=== PATIENT | female | born 1985 | race African-American/Black ===

== ENCOUNTER 2019-05-08 08:53 | Emergency (ER) | payer SELFPAY ==
--- OUTSIDE RECORDS SUMMARY | 2019-05-08 08:55 | XMS REPORT | Continuity of Care Document ---
:1985 Author Organization [facility] Address [address] [place] [address] Phone Unavailable Care Team Providers Name Role Phone PHYSICIAN, NO Primary Care Physician Unavailable Insurance Providers Guarantor Singh Cazares Address [address] [place] [address] Email [email or web address] Payer Self Pay Insurance Subscriber's Name Singh Czaares Relationship Self / Same As Patient Group Number NA Group Name NA Advance Directives Directive Response Recorded Date/Time Advance Directives No 08/24/15 3:54pm Advance Directive on File No 07/24/18 10:17pm Directive to Physicians/Living Will No 08/24/15 3:54pm Health Care Proxy No 08/24/15 3:54pm Name of Surrogate/Decision Maker NA 07/24/18 9:59pm Organ Donor No 08/24/15 3:54pm Medical Power of Associate Professor Of Church Music No 08/24/15 3:54pm Patient/Family Given Education Material R/T Y - KR....07/24/18 07/24/18 10: 17pm Directives? Chief Complaint and Reason for Visit Chief Complaint Female Urogenital Problems Reason for Visit Urinary tract infectious disease Problems Medical Problem Onset Date Status Acute sinus infection Unknown Acute Ankle pain, left Unknown Acute Atypical chest pain Unknown Acute Bronchitis Unknown Acute Costochondritis Unknown Acute Headache Unknown Acute Influenza-like illness Unknown Acute Injury of ankle, left Unknown Acute Injury of left ankle Unknown Acute Left ankle injury Unknown Acute Left ankle pain Unknown Acute Left ankle sprain Unknown Acute Monilial rash Unknown Acute Pain in left ankle Unknown Acute Sinusitis Unknown Acute Sprain of ankle Unknown Acute Sprain of left ankle Unknown Acute Strain of left ankle Unknown Acute Strain of tendon of foot and ankle Unknown Acute Past Problems Medical Problem Onset Date Status Muscle spasm of back Unknown Acute Muscle strain Unknown Acute Pharyngitis Unknown Acute Urinary tract infectious disease Unknown Acute Medications Current Home Medications Medication Dose Units Route Directions Days Qty Instructions Start Date Cefuroxime Axetil 1 Tab ORAL Twice A Day 5 Days 10 Tablet 07/24/18 500 Mg Tab for Infection Ondansetron Hcl 4 Mg ORAL Every 8 Hours 30 Days 15 Tablet 07/24/18 (Zofran *) 4 Mg As Needed as Tab needed for Nausea/Vomiti ng Phenazopyridine 1 Tab ORAL Three Times A 6 Tablet 07/24/18 Hcl (Pyridium 200 Day for Pain Mg*) 200 Mg Tab Tramadol/Apap * 1 Tab ORAL Every 6 Hours 30 Days 15 Tablet 07/24/18 (Ultracet 37.5/325 As Needed for Mg *) 1 Tab Tab Pain Social History Social History Problem Response Recorded Date/Time Onset Date Status Hx Physical Abuse No 07/24/2018 10:17pm Not Applicable Not Applicable Smoking Status Start Date Stop Date Never smoker Hospital Discharge Instructions No hospital discharge instruction information available. Plan of Care Discharge Date 07/25/18 12:04am Instructions/Education Provided Urinary Tract Infection, Adult Forms Provided Portal Welcome Letter Prescriptions See Medication Section Referrals NO PHYSICIAN Additional Instructions/Education Recommend that you take the Ceftin 500 mg 2 times daily for next 5 days, also take the Pyridium 200 mg 3 times daily for 2 days, and also may take the Ultram 50 mg as needed for pain along with Zofran 4 mg as needed for nausea. Follow up with your primary doctor in 2 days for re check of your condition, or otherwise return to the Ed if your condition worsens. Functional Status No functional status information available. Allergies, Adverse Reactions, Alerts Allergen Type Severity Reaction Status Last Updated No Known Allergies Allergy Severe Active 03/24/05 Immunizations No immunization information available. Vital Signs Acute Vital Signs Vital Response Date/Time Blood Pressure 120/75 mm Hg 07/25/2018 12:04am Pulse Pulse Rate (adult) 90 beats per minute (60 - 100) 07/25/2018 12:04am Respiratory Rate 18 breaths per minute (10 - 24) 07/25/2018 12:04am Temperature Source Oral 07/25/2018 12:04am Height 5 ft 3 in 07/24/2018 10:17pm Weight 215 lb 07/24/2018 10:17pm Body Mass Index 38.1 kg/m^2 07/24/2018 10:17pm Results Laboratory Results Test Name Result Units Flags Reference Collection Result Comments Date/Time Date/Time Urine Color YELLOW 07/24/2018 07/24/2018 10:22pm 10:59pm Urine CLOUDY A CLEAR 07/24/2018 07/24/2018 Appearance 10:22pm 10:59pm Urine Glucose NEGATIVE NEGATIVE 07/24/2018 07/24/2018 10:22pm 10:59pm Urine Bilirubin NEGATIVE NEGATIVE 07/24/2018 07/24/2018 10:22pm 10:59pm Urine Ketones NEGATIVE NEGATIVE 07/24/2018 07/24/2018 10:22pm 10:59pm Urine Specific >=1.030 1.003-1.030 07/24/2018 07/24/2018 [place] 10:22pm 10:59pm Urine Blood LARGE H NEGATIVE 07/24/2018 07/24/2018 10:22pm 10:59pm Urine pH 6.000 5-9 07/24/2018 07/24/2018 10:22pm 10:59pm Urine Protein 2+ (100 H NEGATIVE 07/24/2018 07/24/2018 mg/dL) 10:22pm 10:59pm Urine 0.2 E.U./dL 0.2-1.0 07/24/2018 07/24/2018 Urobilinogen 10:22pm 10:59pm Urine Nitrate POSITIVE NEGATIVE 07/24/2018 07/24/2018 10:22pm 10:59pm Urine Leukocyte MODERATE H NEGATIVE 07/24/2018 07/24/2018 Esterase 10:22pm 10:59pm Urine RBC TOO /hpf H 0-5 07/24/2018 07/24/2018 NUMEROUS TO 10:22pm 10:59pm CNT Urine WBC 15-19 /hpf H 0-5 07/24/2018 07/24/2018 10:22pm 10:59pm Urine 0-5 /hpf 0-5 07/24/2018 07/24/2018 Epithelial 10:22pm 10:59pm Cells Urine Bacteria MODERATE /hpf H None Detect 07/24/2018 07/24/2018 (2+) 10:22pm 10:59pm Urine Culture YES 07/24/2018 07/24/2018 Reflexed 10:22pm 10:59pm Procedures No procedure information available. Encounters Encounter Location Arrival/Admit Date Discharge/Depart Date Attending Provider Departed [place] 07/24/18 9:54pm 07/25/18 12:04am [facility] CALL [facility] Recent Diagnosis
--- OUTSIDE RECORDS SUMMARY | 2019-05-08 08:55 | XMS REPORT ---
:1985 Author Organization [facility] Address [address] [place] [address] Care Team Providers Name Role Phone DR KEIRA MARAVILLA Unavailable Unavailable Problems This patient has no known problems. Allergies, Adverse Reactions, Alerts This patient has no known allergies or adverse reactions. Medications This patient has no known medications. Encounters Start End Encounter Admission Attending Care Care Encounter Date/Time Date/Time Type Type Clinicians Facility Department ID 2019-04-22 2019-04-22 Outpatient E KERIA MARAVILLA [facility] [id number] 07:07:00 09:45:00 Results Test Description Test Time Test Comments Text Results Atomic Results Result Comments CT ABDOMEN AND PELVIS 2019-04-22 09:06:[address] OF THE ABDOMEN WITH CONTRAST *OW* AND PELVIS WITH CONTRASTCLINICAL HISTORY:[id number]: Right lower quadrant painCOMPARISON: NoneTECHNIQUE:5 mm contiguous axial images were obtained from the diaphragmatic dome throughthe symphysis pubis after the administration of 95 cc of Omnipaque 300intravenously. Delayed images through the kidneys and collecting systems,sagittal and coronal reformations were also obtained and reviewed. Patient'screatinine and GFR are normal. An up-to-date CT recommended radiation dosereduction technique was utilized with total DLP of 2502 mGy-cm.FINDINGS:Lung bases: ClearHepatobiliary fatty liver with more focal fatty infiltration around theligamentum teres. No liver or splenic mass. No calcified gallstones or biliarydilatation. The pancreas appears unremarkableAdrenals: No obvious massGU: Function symmetrically with no hydronephrosis. Bladder and appears grosslyintact but not well distendedGI tract: No evidence for bowel obstruction or perforation. The appendix isseen and appears normal. The abdominal wall is intact.Retroperitoneum and pelvis: Enlarged heterogeneous uterus with suspicious 9 cmfundal fibroid. Possible 19 mm left ovarian and 13 mm right ovarian cyst. Noadnexal mass, free fluid or fluid collection.Osseous structures: UnremarkableImpression:1. No acute findings in the abdomen or pelvis.2. Enlarged fibroid uterus and small ovarian cysts.3. Fatty liver. GENERAL CHEMISTRY 13 *OW* renzo 2019-04-22 07:54:00 Test Item Value Reference Range Comments GLUCOSE (test code=GGUL) 90 mg/dL 73-118 BUN (test code=GBUN) 7 mg/dL 7-22 CREATININE (test code=GCRE) 0.9 mg/dL 0.6-1.2 URIC ACID (test code=GUA) 4.0 mg/dL 2.2-6.6 CALCIUM (test code=GCL+) 8.8 mg/dL 8.0-10.3 ALBUMIN (test code=GALB) 3.5 g/dL 3.5-5.5 PROTEIN (test code=GTP) 8.0 g/dL 6.4-8.1 ALT (test code=GALT) 11 U/L 10-47 AST (test code=LESLIE) 20 U/L 11-38 ALK PHOS (test code=GALP) 63 U/L 42-141 BILI TOTAL (test code=GTBIL) 0.7 mg/dL 0.2-1.6 GGT (test code=GGGT) 10 U/L 5-65 AMYLASE (test code=GAMY) 45 U/L 14-97 URINE OW2019-04-22 07:54:00 Test Item Value Reference Range Comments PREG UR (test code=PGU) Negative NEGATIVE CBC (INCLUDES AUTOMATED DIFFERENTIAL) *2019-04-22 07:35:00 Test Item Value Reference Range Comments WBC (test code=WBC) 7.4 10\S\3/uL 4.5-11.0 RBC (test code=RBC) 3.39 10\S\6/uL 4.30-5.70 HGB (test code=HBG) 9.8 g/dL 12.0-15.5 HCT (test code=HCT) 30.6 % 35.0-44.0 MCV (test code=MCV) 90.2 fL 81.0-99.0 MCH (test code=MCH) 28.9 pg 27.0-31.0 MCHC (test code=MCHC) 32.0 g/dL 32.0-36.0 RDW (test code=RDW) 13.5 % 11.5-14.5 PLT (test code=PLT) 352 10\S\3/uL 130-400 MPV (test code=OMPV) 7.7 fL 6.2-10.2 NEUTROP # (test code=NE#) 4.9 10\S\3/uL 1.6-8.0 LYMPH # (test code=LY#) 2.0 10\S\3/uL 1.1-3.5 MID # (test code=GMID#) 0.5 10\S\3/uL 0.0-1.1 GRA % (test code=GRA%) 66.1 % 35.0-73.0 LYMPH % (test code=GLY%) 26.7 % 20.0-55.0 MID % (test code=GMID%) 7.2 % 0.0-10.0 URINALYSIS W/O MICROSCOPICOW2019-04-22 07:33:00 Test Item Value Reference Range Comments COLOR (test code=COLU) Yellow YELLOW CLARITY (test code=CLA) Clear CLEAR GLUCOSE UR (test code=UA Negative NEGATIVE GLUCOSE) BILI UR (test code=BILE) Negative NEGATIVE KETONES UR (test code=ANTOLIN) Negative NEGATIVE SP GRAVITY (test code=SPGR) 1.025 1.005-1.030 PH UR (test code=PH) 6.0 4.5-8.0 PROTEIN UR (test code=PU) Negative NEGATIVE NITRITE UR (test Negative NEGATIVE code=NITRITE) UROBIL UR (test code=GUROQ) 0.2 E.U./dL UROBIL UR (test code=GUROQC) UROBILINOGEN REFERENCE RANGE 0.2 - 1.0 EU/dL BLOOD UR (test code=UA 2+ NEGATIVE BLOOD) LEUK ES UR (test code=LEUK) Trace NEGATIVE
--- OUTSIDE RECORDS SUMMARY | 2019-05-08 08:56 | XMS REPORT | Continuity of Care Document ---
:1985 Author Organization [facility] Address [address] [place] [address] Allergies, Adverse Reactions, Alerts Allergen Type Severity Reaction Last Updated Verified Status No Known Allergies Allergy Severe March 24, 2005 Yes Active Medications Medication Status Dose Units Route Sig Qty Days Start End Instructions Date Date Cefuroxime Discontinued 1 ORAL Twice A 10 July Axetil Day for , , Infection 2018 2018 11:30p m Cephalexin * Discontinued 500 ORAL Twice A Day for April 05, 2019 Infection 12:01am (One-Time) Ondansetron Hcl Discontinued 4 ORAL Every 8 Hours As 15 July 24August Needed as needed 2019 04, for Nausea/Vomiting 11:30pm 2018 Phenazopyridine Hcl Discontinued 1 ORAL Three Times A 6 July 24, 2018 Day for Pain 11:30pm (One-Time) Tramadol/Apap * Discontinued 1 ORAL Every 6 Hours July 24August 23, As Needed for 2018 11:30pm 2018 Pain Problems Active Problems Medical Problem Onset Date Status Acute sinus infection Active Ankle pain, left Active Atypical chest pain Active Bronchitis Active Costochondritis Active Headache Active Influenza-like illness Active Injury of ankle, left Active Injury of left ankle Active Left ankle injury Active Left ankle pain Active Left ankle sprain Active Monilial rash Active Pain in left ankle Active Sinusitis Active Sprain of ankle Active Sprain of left ankle Active Strain of left ankle Active Strain of tendon of foot and ankle Active Inactive/Resolved Problems Medical Problem Onset Date Status Muscle spasm of back Resolved Muscle strain Resolved Pharyngitis Resolved UTI (urinary tract infection) Resolved Urinary tract infectious disease Resolved Procedures No procedure information available. Relevant Diagnostic Tests and/or Laboratory Data Laboratory Results Test Date/Time Result Interpretation Reference Result Performing Range Comment Site White Blood Count March 6.6 4.0-11.5 [facility], [address] 2018 10:00pm [facility] [address] Red Blood Count March 3.68 3.80-5.20 [facility], [address] [facility] 2018 10:00pm [place] [address] Hemoglobin March 10.4 10.5-15.7 [facility], [address] [facility] 2018 10:00pm [place] [address] Hematocrit November 33.2 34.0-50.0 [facility], [address] [facility] 2018 10:00pm [place] [address] Mean Corpuscular November 90.2 86-100 [facility], [address] [facility] Volume 2018 10:00pm [place] [address] Mean Corpuscular November 28.3 26.2-33.4 [facility], [address] [facility] Hemoglobin 2018 10:00pm [place] [address] Mean Corpuscular November 31.3 30-34 [facility], [address] [facility] Hemoglobin 2018 Concent 10:00pm [facility] [address] Red Cell March 14.1 12.0-15.5 [facility], [address] [facility] Distribution 2018 Width 10:00pm [place] [address] Platelet Count March 338 165-450 [facility], [address] [facility] 2018 10:00pm [place] [address] Mean Platelet March 9.5 9.4-12.6 [facility], [address] [facility] Volume 2018 10:00pm [place] [address] Neutrophils (%) March 53.7 44.4-80.1 [facility], [address] [facility] (Auto) 2018 10:00pm [place] [address] Immature March 0.2 0.0-0.4 [facility], [address] [facility] Granulocyte % 2018 (Auto) 10:00pm [place] [address] Lymphocytes (%) March 37.5 10.0-50.0 [facility], [address] [facility] (Auto) 2018 10:00pm [place] [address] Monocytes (%) March 5.3 3.6-12.0 [facility], [address] [facility] (Auto) 2018 10:00pm [place] [address] Eosinophils (%) March 2.7 0.0-5.4 [facility], [address] [facility] (Auto) 2018 10:00pm [place] [address] Basophils (%) March 0.6 0.1-1.2 [facility], [address] [facility] (Auto) 2018 10:00pm [place] [address] Neutrophils # November 3.52 1.56-6.13 [facility] [address] [facility] (Auto) 2018 10:00pm [place] [address] Absolute Immature November 0.0 0.0-0.03 [facility], [address] [place] [address] Granulocyte (auto 2018 10:00pm [place] [address] Lymphocytes # November 2.5 1.18-3.74 [facility] [address] [facility] (Auto) 2018 10:00pm [place] [address] Monocytes # November 0.35 0.24-0.86 [facility], [address] [facility] (Auto) 2018 10:00pm [place] [address] Eosinophils # November 0.18 0.04-0.36 [facility], [address] [facility] (Auto) 2018 10:00pm [place] [address] Basophils # March 0.04 0.01-0.08 [facility], [address] [facility] (Auto) 2018 10:00pm [place] [address] Nucleated Red November 0 0-0.2 [facility], [address] [place] [address] Blood Cells % 2018 10:00pm [place] [address] Nucleated Red November 0 0 [facility], [address] [place] [address] Blood Cells # 2018 10:00pm [place] [address] Urine Color March LT. [facility], [address] [place] [address] 2018 YELLOW 9:55pm [facility] [address] Urine Appearance March CLEAR CLEAR [facility], [address] [place] [address] 2018 9:55pm [facility] [address] Urine Glucose November NEGATIVE NEGATIVE [facility], [address] [place] [address] (UA) 2018 9:55pm [place] [address] Urine Bilirubin November NEGATIVE NEGATIVE [facility], [address] [place] [address] 2018 9:55pm [place] [address] Urine Ketones November NEGATIVE NEGATIVE [facility], [address] [place] [address] 2018 9:55pm [place] [address] Urine Specific November <=1.005 1.003-1.03 [facility], [address] [place] [address] [place] 2018 0 9:55pm [place] [address] Urine Blood November SMALL NEGATIVE [facility], [address] [place] [address] 2018 9:55pm [place] [address] Urine pH March 6.000 5-9 [facility], [address] [place] [address] 2018 9:55pm [facility] [address] Urine Protein March NEGATIVE NEGATIVE [facility], [address] [place] [address] 2018 9:55pm [facility] [address] Urine November 0.2 0.2-1.0 [facility], [address] [place] [address] Urobilinogen 2018 9:55pm [facility] [address] Urine Nitrate March NEGATIVE NEGATIVE [facility], [address] [place] [address] 2018 9:55pm [facility] [address] Urine Leukocyte March TRACE NEGATIVE [facility], [address] [place] [address] Esterase 2018 9:55pm [facility] [address] Urine RBC March 0-3 0-5 [facility], [address] [place] [address] 2018 9:55pm [facility] [address] Urine WBC March 0-5 0-5 [facility], [address] [place] [address] 2018 9:55pm [facility] [address] Urine Epithelial March 0-5 0-5 [facility], [address] [place] [address] Cells 2018 9:55pm [facility] [address] Urine Bacteria March None None [facility], [address] [place] [address] 2018 Detected Detect 9:55pm [place] [id number] Urine Culture March YES [facility], [address] [place] [address] Reflexed 2018 9:55pm [facility] [address] Random Glucose March 92 74-106 [facility], [address] [place] [address] 2018 10:00pm [facility] [address] Blood Urea March 9 -20 [facility], [address] [place] [address] Nitrogen 2018 10:00pm [facility] [address] Serum Osmolality March 272 280-300 [facility], [address] [place] [address] 2018 10:00pm [place] [id number] Creatinine March 0.7 0.50-0.90 [facility], [address] [place] [address] 2018 10:00pm [facility] [address] Glomerular March > 60.00 [address] RESULTS [address] Filtration Rate 2018 ARE REPORTED Calc 10:00pm IN [facility] [address] mL/min/1.73m2 .Normal GFR: >60mL/minMode rately decreased GFR: 30-59 mL/minSeverel y decreased GFR: 15-29 mL/minKidney Failure (or Dialysis): <15 mL/minThe calculated eGFR is not valid for patients younger than 18 years or older than 75 years. BUN/Creatinine March 12.9 12-20 [facility], [address] [facility] Ratio 2018 10:00pm [facility] [address] Sodium Level March 137 135-145 [facility], [address] [facility] 2018 10:00pm [facility] [address] Potassium Level March 3.8 3.5-5.2 [facility], [address] [facility] 2018 10:00pm [facility] [address] Chloride Level March 100 98-108 [facility], [address] [facility] 2018 10:00pm [facility] [address] Carbon Dioxide April 04- [facility] [address] [facility] Level 2018 10:00pm [facility] [address] Anion Gap March 18.8 - [facility] [address] [facility] 2018 10:00pm [facility] [address] Calcium Level March 9.2 8.6-10.0 [facility] [address] [facility] 2018 10:00pm [facility] [address] Total Protein March 8.1 6.6-8.7 [facility] [address] [facility] 2018 10:00pm [facility] [address] Albumin November 4.5 3.5-5.2 [facility] [address] [facility] 2018 10:00pm [facility] [address] Globulin November 3.6 [facility] [address] [facility] 2018 10:00pm [facility] [address] Albumin/Globulin November 1.3 >1.0 [facility] [address] [facility] Ratio 2018 10:00pm [facility] [address] Total Bilirubin March 0.4 0.0-1.2 [facility], [address] [facility] 2018 10:00pm [facility] [address] Aspartate Amino March 17 15-32 [facility] [address] [facility] Transf (AST/SGOT) 2018 10:00pm [facility] [address] Alanine March 9 0-33 [facility] [address] [facility] Aminotransferase 2018 (ALT/SGPT) 10:00pm [facility] [address] Lipase March 15 13-60 [facility] [address] [facility] 2018 10:00pm [facility] [address] Total Alkaline March 70 35-105 [facility] [address] [facility] Phosphatase 2018 10:00pm [facility] [address] Urine HCG, March NEGATIVE NEG If a negative [facility], [address] [facility] Qualitative 2018 result is 9:55pm obtained but [facility] [address] is suspected, a new specimen should be collected after 48-72 hours and tested. If waiting 48 hrs is not medically advisable, the test result should be confirmed with at quantitative hCG assay. Health Concerns No known health concerns documented Advance Directives Advance Directive Response Recorded Date/Time Advance Directives No August 24, 2015 3:54pm Advance Directive on File No April 04, 2019 9:22pm Directive to Physicians/Living Will No August 24, 2015 3:54pm Health Care Proxy No August 24, 2015 3:54pm Organ Donor No August 24, 2015 3:54pm Medical Power of Didactic Program In Dietetics Director No August 24, 2015 3:54pm Chief Complaint and Reason for Visit Chief Complaint General Complaint Reason for Visit [id number] Encounters Encounter Location(s) Arrival/Admit Date Discharge/Depart Date Provider(s) Departed [place] April 04, April 05, 2019 [facility] Emergency Room [place] [address] 9:06pm 12:30am IVETTE [facility] Assessments No Assessments Information Available Functional Status No Functional Status information available Goals No Goals Information Available Immunizations No Immunization Information Available Mental Status No Mental Status Information Available Medical Equipment No Medical Equipment Information available Insurance Providers Guarantor Singh Cazares L Address [address] [address] Contact Info. Home Phone: Payer Policy Id Coverage Id Subscriber's Subscriber Id Effective Expiration Name Date Date Self Pay Singh Cazares Insurance L Plan of Treatment TAKE MEDICATION PRESCRIBED. INCREASE FLUID INTAKE--WATER AND NON CAFFINATED DRINKS. FOLLOW UP WITH PRIMARY CARE DOCTOR IN 2-3 DAYS. RETURN TO ER FOR ANY FURTHER EMERGENCIES. Future Tests Future scheduled test information is unavailable Pending Tests Test Name Date ordered Urine Culture April 04, 2019 9:55pm Future Visits Future appointment information is unavailable Referrals to Other Providers Reason for Referral Start Provider Provider Contact Provider Address Referral Date Information PHYSICIAN, NO Future Procedures Future procedure information is unavailable Future Medications Future medication information is unavailable Patient Instructions Urinary Tract Infection, Adult, Fkov-li-Ghtu Social History Smoking Status Status Date of Observation Never smoked tobacco (finding) April 04, 2019 9:22pm Observation Status Observation Response Date of Response Hx Physical Abuse No April 04, 2019 9:22pm Assigned Sex Female Vital Signs Vital Reading Result Collection Date/Time
[2019-05-08] MEDS ORDERED: MEPERIDINE HCL 25 MG/0.5 ML ONE (09:24)
[2019-05-08 09:41] LABS: Absolute Lymphocytes (CBC) 1.7 K/uL (0.7-4.9); Basophils % 0.6 % (0-1.3); Hematocrit 28.1 % (36.0-45.0); Lymphocytes % 23.9 % (15.3-44.8); MPV 7.5 fL (7.6-11.3); RBC Red Blood Cell Count 3.27 M/uL (3.86-4.86)
[2019-05-08 09:55] LABS: ALT/SGPT 14 U/L (12-78); AST/SGOT 11 U/L (15-37); Albumin 3.5 g/dL (3.4-5.0); Alkaline Phosphatase 81 U/L (45-117); BUN Blood Urea Nitrogen 10 mg/dL (7-18); Bicarbonate 25 mmol/L (21-32); Bilirubin Direct 0.1 mg/dL (0-0.2); Bilirubin Total 0.7 mg/dL (0.2-1.0); Glucose Level 86 mg/dL (74-106); Lipase 65 U/L (73-393); Potassium 4.1 mmol/L (3.5-5.1); Protein, Total 8.5 g/dL (6.4-8.2); Sodium Level 136 mmol/L (136-145)
[2019-05-08 10:29] LABS: Urine Blood 3+ (NEG); Urine Glucose NEGATIVE (NEG); Urine Protein NEGATIVE (NEG); Urine pH 5.5 (5.0-7.0)
--- NOTE | 2019-05-08 10:32 | RAD REPORT ---
EXAM DESCRIPTION: CT - Stone Protocol - 05/08/2019 10:13 am CLINICAL HISTORY: Flank pain. left flank and pelvic pain, hematuria COMPARISON: No comparisons TECHNIQUE: Axial images were obtained without oral or IV contrast. Lack of contrast limits solid org an and vascular assessment. The [id number] spans the entirety of the system partially obscuring uppermost abdomen and lung bases. Coronal reformatted images were obtained and reviewed. All CT scans are performed using dose optimization technique as appropriate and may include automated exposure control or mA/KV adjustment according to patient size. FINDINGS: The lower lung adames are clear. Imaged portions of the liver and spleen show no suspicious findings on non-contrast imaging. The panc reas and adrenal glands are normal. No pathologic lymphadenopathy in the abdomen or pelvis. No urinary tract stones or obstructive uropathy. No bowel obstruction, free air, free fluid or abscess. Normal appendix noted. No significant bony abnormality. IMPRESSION: No urinary tract stones or obstructive uropathy.
[2019-05-08 10:34] LABS: Urine Bacteria <20 /HPF (<20); Urine Culture Reflex Order NOT NEEDED; Urine Mucus LIGHT /HPF (NONE SEEN); Urine RBC >50 /HPF (NONE SEEN)
--- NOTE | 2019-05-08 11:01 | ER ---
Nurse's Notes [facility] Name: Singh Alcantar Age: 34 yrs Sex: Female : 1985 Arrival Date: 05/08/2019 Time: 08:56 Bed 7 Private MD: Diagnosis: Lower abdominal pain, unspecified;Hematuria, unspecified Presentation: 05/08 09:14 Presenting complaint: Patient states: LLQ abdominal pain x 4 days, reports blood in jl7 urine and vomiting, denies bloody stool, no diarrhea. Transition of care: patient was not received from another setting of care. Onset of symptoms was May 05, 2019. Risk Assessment: Do you want to hurt yourself or someone else? Patient reports no desire to harm self or others. Initial Sepsis Screen: Does the patient meet any 2 criteria? No. Patient's initial sepsis screen is negative. Does the patient have a suspected source of infection? Yes: Acute abdominal pain. Care prior to arrival: None. 09:14 Method Of Arrival: Ambulatory [facility] 09:14 Acuity: ALINA 3 jl7 Triage Assessment: 09:16 General: Appears in no apparent distress. uncomfortable, Behavior is calm, cooperative, jl7 appropriate for age. Pain: Complains of pain in left lower quadrant Pain radiates to right lower quadrant Pain currently is 7 out of 10 on a pain scale. at worst was 10 out of 10 on a pain scale. Quality of pain is described as shooting, Pain began 4 days ago Is intermittent. Neuro: Level of Consciousness is awake, alert, obeys commands, Oriented to person, place, time, situation. Cardiovascular: Patient's skin is warm and dry. Respiratory: Airway is patent Respiratory effort is even, unlabored, Respiratory pattern is regular, symmetrical. GI: Abdomen is non-distended, Bowel sounds present X 4 quads. Abdomen is tender to palpation in right lower quadrant and left lower quadrant. : Reports blood in urine. Derm: Skin is pink, warm \T\ dry. COUNSEL: 09:16 LMP 05/02/2019 jl7 Historical: - Allergies: 09:16 No Known Allergies; jl7 - Home Meds: 09:16 None [Active]; jl7 - PMHx: 09:16 None; jl7 - PSHx: 09:16 Left tube removed; jl7 - Immunization history:: Adult Immunizations unknown. - Social history:: Smoking status: Patient/guardian denies using tobacco. - Ebola Screening: : No symptoms or risks identified at this time. - Family history:: not pertinent. - Hospitalizations: : No recent hospitalization is reported. Screenin:19 Abuse screen: Denies threats or abuse. Denies injuries from another. Nutritional jl7 screening: No deficits noted. Tuberculosis screening: No symptoms or risk factors identified. Fall Risk IV access (20 points). Total Swift Fall Scale indicates No Risk (0-24 pts). Assessment: 09:19 General: See triage assessment. jl7 10:22 Reassessment: Patient appears in no apparent distress at this time. Patient and/or jl7 family updated on plan of care and expected duration. Pain level reassessed. Patient is alert, oriented x 3, equal unlabored respirations, skin warm/dry/pink. Patient states feeling better. Patient states symptoms have improved. Vital Signs: 09:16 BP 124 / 73; Pulse 79; Resp 14 S; Temp 98.2(O); Pulse Ox 100% on R/A; Weight 97.07 kg jl7 (R); Height 5 ft. 3 in. (160.02 cm) (R); Pain 7/10; 09:38 BP 101 / 70; Pulse 74; Resp 14 S; Pulse Ox 97% on R/A; jl7 10:21 BP 105 / 69; Pulse 78; Resp 16 S; Pulse Ox 98% on R/A; jl7 09:16 Body Mass Index 37.91 (97.07 kg, 160.02 cm) jl7 ED Course: 08:56 Patient arrived in ED. rg4 08:59 Nakul Amin MD is Attending Physician. rn 09:06 Nany Eduardo RN is Primary Nurse. jl7 09:16 Triage completed. jl7 09:16 Arm band placed on right wrist. jl7 09:19 Patient has correct armband on for positive identification. Placed in gown. Bed in low jl7 position. Call light in reach. Side rails up X 1. Pulse ox on. NIBP on. 09:19 Urine collected: clean catch specimen. jl7 09:37 Initial lab(s) drawn, by ne, sent to lab. Inserted saline lock: 22 gauge in left jl7 forearm, using aseptic technique. Blood collected. 10:15 CT Stone Protocol In Process Unspecified. EDMS 11:09 No provider procedures requiring assistance completed. IV discontinued, intact, jl7 bleeding controlled, No redness/swelling at site. Pressure dressing applied. Administered Medications: 09:30 Drug: Demerol 25 mg Route: IVP; Site: left forearm; jl7 09:45 Follow up: Response: No adverse reaction; Pain is decreased jl7 Outcome: 10:59 Discharge ordered by . rn 11: Discharged to home ambulatory, with family. jl7 11:09 Condition: stable 11:09 Discharge instructions given to patient, family, Instructed on discharge instructions, follow up and referral plans. medication usage, Demonstrated understanding of instructions, follow-up care, medications, Prescriptions given X 1. 11:09 Patient left the ED. jl7 Signatures: Dispatcher [employer] EDMS Nakul Amin MD MD rn Garcia, Rubi rg4 Nany Eduardo RN RN jl7
--- NOTE | 2019-05-08 11:01 | EDPHYS ---
Physician Documentation [facility] Name: Singh Alcantar Age: 34 yrs Sex: Female : 1985 Arrival Date: 05/08/2019 Time: 08:56 Bed 7 Private MD: ED Physician Nakul Amin HPI: 05/08 09:24 This 34 yrs old Black Female presents to ER via Ambulatory with complaints of Abdominal rn Pain. 09:24 The patient presents with abdominal pain in the left upper quadrant, in the left lower rn quadrant. 09:26 Onset: The symptoms/episode began/occurred 4 day(s) ago. The symptoms do not radiate. rn Associated signs and symptoms: Pertinent positives: fever, hematuria, Pertinent negatives: anorexia, blood in stools, chest pain, constipation, diarrhea, vaginal discharge. The symptoms are described as achy, intermittent. Modifying factors: The symptoms are alleviated by nothing, the symptoms are aggravated by nothing. Severity of pain: At its worst the pain was mild in the emergency department the pain is unchanged. The patient has not experienced similar symptoms in the past. The patient has not recently seen a physician. 4 days intermittent left sided abd pain associated with hematuria, comes in waves, no intestinal problems or kidney stones in past. . 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 - Social history:: Smoking status: Patient/guardian denies using tobacco. - Ebola Screening: : No symptoms or risks identified at this time. - Family history:: not pertinent. - Hospitalizations: : No recent hospitalization is reported. 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 Exam: 09:26 Constitutional: This is a well developed, well nourished patient who is awake, alert, rn and in no acute distress. Ambulatory to room without difficulty Head/Face: Normocephalic, atraumatic. ENT: MMM Cardiovascular: Regular rate and rhythm. No pulse deficits. Respiratory: No increased work of breathing, no retractions or nasal flaring. Abdomen/GI: soft, mild LLQ and RLQ tenderness, no rebound MS/ Extremity: Pulses equal, no cyanosis. Neurovascular intact. Full, normal range of motion. Equal circumference. Neuro: Awake and alert, GCS 15, oriented to person, place, time, and situation. Cranial nerves II-XII grossly intact. Motor strength 5/5 in all extremities. Sensory grossly intact. Cerebellar exam normal. Normal gait. Vital Signs: 09:16 BP 124 / 73; Pulse 79; Resp 14 S; Temp 98.2(O); Pulse Ox 100% on R/A; Weight 97.07 kg jl7 (R); Height 5 ft. 3 in. (160.02 cm) (R); Pain 7/10; 09:38 BP 101 / 70; Pulse 74; Resp 14 S; Pulse Ox 97% on R/A; jl7 10:21 BP 105 / 69; Pulse 78; Resp 16 S; Pulse Ox 98% on R/A; jl7 09:16 Body Mass Index 37.91 (97.07 kg, 160.02 cm) jl7 MDM: 08:59 Patient medically screened. rn 10:58 Differential diagnosis: appendicitis, diverticulitis, non-specific abd pain, urinary rn tract infection. 10:58 Data reviewed: vital signs, nurses notes, lab test result(s), radiologic studies, CT rn scan, and as a result, I will discharge patient. Counseling: I had a detailed discussion with the patient and/or guardian regarding: the historical points, exam findings, and any diagnostic results supporting the discharge/admit diagnosis, lab results, radiology results, the need for outpatient follow up, to return to the emergency department if symptoms worsen or persist or if there are any questions or concerns that arise at home. Special discussion: Based on the patient's Hx, exam, and Dx evaluation, there is no indication for emergent surgery or inpatient Tx. It is understood by the patient/guardian that if the Sx's persist or worsen they need to return immediately for re-evaluation. I discussed with the patient/guardian in detail that at this point there is no indication for admission to the hospital. It is understood, however, that if the symptoms persist or worsen the patient needs to return immediately for re-evaluation. ED course: No acute findings in blood or CT abdomen, + hematuria without kidney stone or infection. Has had left tube removed in past. Improved pain. Possible passed stone.. 05/08 09:09 Order name: Urine Dipstick--Ancillary (enter results); Complete Time: 10:35 05/08 09:11 Order name: Basic Metabolic Panel; Complete Time: 10:05 05/08 09:11 Order name: CBC with Diff; Complete Time: 10:05 05/08 09:11 Order name: Creatinine for Radiology; Complete Time: 10:05 05/08 09:11 Order name: Hepatic Function; Complete Time: 10:05 05/08 09:11 Order name: Lipase; Complete Time: 10:05 05/08 09:11 Order name: IV Saline Lock; Complete Time: 09:36 05/08 09:11 Order name: Labs collected and sent; Complete Time: 09:36 05/08 09:11 Order name: Urine Microscopic Only; Complete Time: 10:35 05/08 09:24 Order name: CT Stone Protocol; Complete Time: 10:43 05/08 10:03 Order name: Urine --Ancillary (enter results); Complete Time: 10:35 05/08 09:11 Order name: Urine Dipstick-Ancillary (obtain specimen); Complete Time: 09:20 rn Administered Medications: 09:30 Drug: Demerol 25 mg Route: IVP; Site: left forearm; jl7 09:45 Follow up: Response: No adverse reaction; Pain is decreased jl7 Disposition: 05/08/19 10:59 Discharged to Home. Impression: Lower abdominal pain, unspecified, Hematuria, unspecified. - Condition is Stable. - Discharge Instructions: Abdominal Pain, Adult, Hematuria, Adult, Pain Without a Known Cause. - Prescriptions for Tylenol- Codeine #3 300-30 mg Oral Tablet - take 1 tablet by ORAL route every 6 hours As needed; 15 tablet. - Medication Reconciliation Form, Thank You Letter, Antibiotic Education, Prescription Opioid Use form. - Follow up: Private Physician; When: As needed; Reason: Recheck today's complaints, Re-evaluation by your physician. - Problem is new. - Symptoms have improved. Signatures: Dispatcher [employer] [facility] Nakul Amin MD MD rn Leal, Jahala, RN RN jl7 Corrections: (The following items were deleted from the chart) 09:53 09:52 CBC Smear Scan ordered. [facility] 10:02 09:12 Abdomen Pelvis W Con+CT.RAD.BRZ ordered. [facility] 11:09 10:59 05/08/2019 10:59 Discharged to Home. Impression: Lower abdominal pain, jl7 unspecified; Hematuria, unspecified. Condition is Stable. Forms are Medication Reconciliation Form, Thank You Letter, Antibiotic Education, Prescription Opioid Use. Follow up: Private Physician; When: As needed; Reason: Recheck today's complaints, Re-evaluation by your physician. Problem is new. Symptoms have improved. rn
[2019-05-08 11:21] VITALS: TEMP 98.2
[2019-05-08 11:24] VITALS: BP 105/69; O2SAT 98
== END 2019-05-08 11:09 | disposition home or self-care (01) ==
LOC: ER 08:53
DX: R31.9 Hematuria, unspecified (principal)
CPT/HCPCS: 36415; 74176; 76377; 80048; 80076; 81003; 81015; 81025; 83690; 85025; 96374; 99284; J2175